=== PATIENT | female | born 1985 | race Caucasian/White ===

== ENCOUNTER → 2016-12-08 | Outpatient (CLI) | payer BC ==
--- NOTE | 2016-12-08 17:07 | DI ---
History: Menorrhagia. Procedure: The study was performed transabdominally and transvaginally using 4 and 8 MHz transducers. Findings: Reason for a transvaginal ultrasound for specific information. Impression: Transvaginal ultrasound and transabdominal ultrasound performed. See separate report
--- NOTE | 2016-12-08 17:13 | DI ---
History: Menorrhagia. Procedure: The study was performed using an 8 MHz transducer transvaginally. Findings: No free fluid is identified. Uterine contour is normal. Endometrial stripe thickness curren tly is variable up to 1.2 cm, acceptable for a pre-menopausal status. No focal mass identified either in the myometrium or in the endometrium. The right ovary is 2.6 x 2.6 x 1.9 cm and contains one small follicle. The left ovary is 2.5 x 2.7 x 2 cm and contains several well defined follicles. These are 1.1 x 1.3 and 1.1 x 0.9 cm. Good ovarian perfusion is noted bilaterally. Impression: Tiny right ovarian follicle. 2 moderate sized left ovarian follicles. Good perfusion note d bilaterally. Normal appearing uterus. Uterine length is 8.2 x 4.1 x 5.1 cm
== END ==
LOC: US 14:54
PROVIDERS: ATTEND Student in an Organized Health Care Education/Training Program
DX: N92.6 Irregular menstruation, unspecified (principal); Z87.42 Personal history of other diseases of the female genital tract
CPT/HCPCS: 76830; 76856

== ENCOUNTER → 2017-05-10 | Outpatient (CLI) | payer BC | LOC: MOB LAB 14:47 | PROVIDERS: ATTEND Student in an Organized Health Care Education/Training Program | DX: N89.8 Other specified noninflammatory disorders of vagina (principal); N93.0 Postcoital and contact bleeding; N94.10 Unspecified dyspareunia; E03.9 Hypothyroidism, unspecified | CPT/HCPCS: 36415; 84443; 87480; 87510; 87660 ==